=== PATIENT | female | born 1995 | race Caucasian/White ===

== ENCOUNTER 2023-09-18 12:48 | Inpatient (IN) ==
[2023-09-18] MEDS ORDERED: LIDOCAINE 1% LOCAL 20 ML VIAL INFIL PRN (22:43)
[2023-09-18] MEDS ORDERED: OXYTOCIN 30 UNITS/NSS 30 UNITS/500 ML BAG IV PRN (22:43)
--- NOTE | 2023-09-18 22:51 | History & Physical Report ---
Date of Service September 18, 2023 Assessment & Plan (1) Supervision of normal intrauterine in primigravida: Plan: 28-year-old G2, P0 currently at 40 weeks 3 days gestational age presents for induction of labor. 1. Fetus: Category 1 tracing 2. Labor: Oxytocin per regular protocol. Will AROM when appropriate 3. GBS negative 4. Vitals within normal limits Admission and Anticipated Discharge Date Admission Date: September 18, 2023 History of Present Illness Primary Care Provider: Estrella Mendez MD 28-year-old G2, P0 currently at 40 weeks 3 days gestational age presents for induction of labor. has been uncomplicated to date. OB Labs: Blood Type O Positive 02/06/23 Antibody Screen NEGATIVE 02/06/23 Hemoglobin 11.9 g/dl (12.0-16.0) L 06/28/23 Hematocrit 34.3 % (37.0-47.0) L 06/28/23 Mean Corpuscular Volume 83.3 fL (80.0-100.0) 02/06/23 Platelet Count 277 K/uL (130-400) 02/06/23 Rubella IgG Antibody Immune (Immune) 02/06/23 Rapid Plasma Reagin Nonreactive (Nonreactive) 02/06/23 Hepatitis B Surface Antigen. NON-REACTIVE (NON-REACTIVE) 02/06/23 Hepatitis C Antibody (EIA) NON-REACTIVE (NON-REACTIVE) 02/06/23 HIV (1&2) Ag and Ab Confirmation NON-REACTIVE (NON-REACTIVE) 02/06/23 Glucose 1 Hour 50 gm Load 118 mg/dl (70-130) 06/28/23 OB Optional Labs: Chlamydia trachomatis RNA Not Detected (NotDetected) 02/06/23 Neisseria gonorrhoeae RNA Not Detected (NotDetected) 02/06/23 Labs Reviewed: cf/sma-negative--mln cfdna-low risk--mln Allergies Allergy/AdvReac Type Severity Reaction Status Date / Time No Known Allergies Allergy Verified 09/17/23 19:51 Home Medications Medication Instructions Recorded Confirmed Type vitamin no.180-ferrous 1 tab PO DAILY 01/30/23 09/17/23 History fumarate 27 mg-folic acid 1 mg tablet ( Plus Vitamin-Mineral) aspirin 81 mg tablet,delayed 81 mg PO DAILY 04/03/23 09/17/23 History release (Adult Low Dose Aspirin) Patient History Medical History (Updated 09/18/23 @ 22:50 by Ashutosh Martinez MD) No pertinent past medical history Surgical History S/P appendectomy S/P wisdom tooth extraction Family History Sister Asthma Mother Hypertension Dyslipidemia Father Hypertension Dyslipidemia Other Breast cancer Osteoporosis Denies family history of Ovarian cancer Prostate cancer Colorectal cancer Social History Smoking Status: Never smoker Do You Dip or Chew Tobacco: No; Hx Alcohol Use: No Hx Substance Use: No Preferred Language: [place] Citizen Communication Ability: Effective 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 Beliefs That Will Affect Care: None marital status: marital status details: Mack (27) [phone] Current Living Situation: Spouse Current Living Situation Comment: lives with spouse, 1 dog current occupational status: employed current occupation: [employer] Feels Safe at Home: Yes Assistive Devices: None Physical Exam Genitourinary: normal external appearance Manual OB Exam: + cervical dilation (1.5), + cervical effacement 70% and + station -2 OB Exam Monitor Tracing: + external FHT monitor used, + external uterine monitor used, + category I and + normal FHT variability Coding Level of Care Code None Diagnoses Encounter for supervision of normal first in third trimester Z34.03 Trimester: third trimester (1) Supervision of normal intrauterine in primigravida Trimester: third trimester Qualified Code(s): Z34.03 - Encounter for supervision of normal first , third trimester
[2023-09-18 23:27] LABS: Hemoglobin 13.5 g/dl (12.0-16.0); Mean Corpuscular Hemoglobin 30.5 pg (25.0-34.0); Mean Corpuscular Hgb Conc 35.5 g/dL (32.0-36.0); Mean Platelet Volume 9.7 fL (9.4-12.4); Platelet Count 221 K/uL (130-400); RDW Coefficient of Variation 13.2 % (11.5-14.5); RDW Standard Deviation 41.1 fL (36.4-46.3); Red Blood Count 4.42 M/uL (4.20-5.40); White Blood Count 10.53 K/ul (4.8-10.8)
[2023-09-18] MEDS: LACTATED RINGER'S 1,000 ML IV PRN (23:51)
[2023-09-18] MEDS: OXYTOCIN 30 UNITS/NSS 30 UNITS/500 ML BAG IV PRN (23:52)
[2023-09-19] MEDS: ACETAMINOPHEN 325 MG TAB PO PRN (04:43)
--- NOTE | 2023-09-19 07:31 | Labor Progress Brief Note ---
Date of Service September 19, 2023 Subjective Reason For Note: Routine Evaluation Assessment & Plan (1) Supervision of normal intrauterine in primigravida: Plan: 28-year-old G2, P0 currently at 40 weeks 4 days gestational age presents for induction of labor. 1. Fetus: Category 1 tracing 2. Labor: Oxytocin per regular protocol. AROM 3. GBS negative 4. Vitals within normal limits Trimester: third trimester Qualified Code(s): Z34.03 - Encounter for supervision of normal first , third trimester Admission and Anticipated Discharge Date Admission Date: September 18, 2023 Physical Exam 2 Genitourinary: Manual OB Exam: + cervical dilation (2), + cervical effacement 70%, + station -2 and + amniotic fluid (AROM) OB Exam Monitor Tracing: + external FHT monitor used, + external uterine monitor used, + category I and + normal FHT variability Results & Data Vital Signs (Past 12 Hours) Vital Signs Temp Pulse Resp BP 09/19/23 07:03 89 136/83 09/19/23 06:03 97 H 111/66 09/19/23 05:03 90 125/70 09/19/23 04:03 91 H 130/69 09/19/23 03:04 78 122/74 09/19/23 02:32 18 09/19/23 02:32 18 09/19/23 02:04 75 121/66 09/19/23 01:17 80 123/69 09/19/23 01:15 18 09/19/23 01:15 36.8 C 18 09/19/23 00:03 89 127/72 09/18/23 23:03 37.0 C 09/18/23 22:50 86 134/87 Coding Level of Care Code None Diagnoses Encounter for supervision of normal first in third trimester Z34.03 Trimester: third trimester
--- NOTE | 2023-09-19 09:23 | Anesthesiology Consultation ---
Date of Service September 19, 2023 Assessment & Plan (1) Encounter for pre-operative examination: Chart Review Chart Review: Patient NOT seen in Pre Admission Testing and Acceptable Risk for Labor Epidural Consults Requested none History Height/Weight Height: 5 ft 3 in Weight: 86.183 kg Allergies Allergy/AdvReac Type Severity Reaction Status Date / Time No Known Allergies Allergy Verified 09/17/23 19:51 Medications Home Medications Medication Instructions Recorded Confirmed Last Taken vitamin no.180-ferrous 1 tab PO DAILY 01/30/23 09/18/23 09/18/23 fumarate 27 mg-folic acid 1 mg tablet ( Plus Vitamin-Mineral) aspirin 81 mg tablet,delayed 81 mg PO DAILY 04/03/23 09/18/23 09/18/23 release (Adult Low Dose Aspirin) Active Medications Generic Name Dose Route Start Last Admin Trade Name Freq PRN Reason Stop Dose Admin Acetaminophen 650 mg 09/18/23 22:43 09/19/23 04:43 Acetaminophen 325 Mg Tab PO 10/18/23 22:42 650 mg Q6H PRN Administration Pain Lactated Ringer's 1,000 mls @ 125 mls/hr 09/18/23 22:43 09/19/23 09:05 Lr IV 09/20/23 22:42 999 mls/hr .Q8H PRN Infusion L&D Protocol Protocol Oxytocin 30 units in 500 mls @ 20 mls/hr 09/18/23 22:46 09/19/23 07:00 Pitocin 30 Units/Nss IV 09/20/23 22:45 1.2 units/hr .Q24H PRN 20 mls/hr Labor Induction/Augmentation Titration Protocol 1.2 UNITS/HR Past Medical History Medical History No pertinent past medical history Past Family History Family History Sister Asthma Mother Hypertension Dyslipidemia Father Hypertension Dyslipidemia Other Breast cancer Osteoporosis Denies family history of Ovarian cancer Prostate cancer Colorectal cancer Past Surgical History Surgical History S/P appendectomy S/P wisdom tooth extraction Social History Smoking Status: Never smoker Do You Dip or Chew Tobacco: No Hx Alcohol Use: No Hx Substance Use: No substance use type: does not use Physical Exam Vital Signs Last Vital Signs Temp 98.4 F 09/19/23 07:28 Pulse 87 09/19/23 09:03 Resp 18 09/19/23 02:32 BP 128/75 09/19/23 09:03 Testing Laboratory Results 09/18/23 22:57
[2023-09-19] MEDS ORDERED: NALOXONE HCL 0.4 MG/1 ML VIAL/CARP IV PRN (09:24)
[2023-09-19] MEDS ORDERED: NALBUPHINE HCL 5 MG in SYRINGE 0 ML IV PRN (09:24)
[2023-09-19] MEDS ORDERED: SODIUM CHLORIDE 0.9% PF INJ 10 ML VIAL EPI PRN (09:24)
[2023-09-19] MEDS ORDERED: BUPIVACAINE 0.25% PF 30 ML VIAL EPI PRN (09:24)
[2023-09-19] MEDS ORDERED: LIDOCAINE 2% MPF LOCAL 5 ML VIAL EPI PRN (09:24)
[2023-09-19] MEDS ORDERED: NALOXONE HCL 1 MG in SODIUM CHLORIDE 0.9% 1,000 ML IV PRN (09:24)
[2023-09-19] MEDS ORDERED: ePHEDrine sulfate 50 MG/ML AMP IV PRN (09:24)
[2023-09-19] MEDS ORDERED: fentaNYL citrate PF 100 MCG/2 ML VIAL EPI PRN (09:24)
[2023-09-19] MEDS ORDERED: ROPIVACAINE 0.5% PF 5 MG/ML 20 ML VIAL EPI PRN (09:24)
[2023-09-19] MEDS: BUPIVACAINE 0.25% PF 30 ML VIAL EPI STA (09:49)
[2023-09-19] MEDS: fentANYL 2 MCG/ML BUPIVacaine 0.125%-NSS 100ML BAG EPI PRN (09:49)
[2023-09-19] MEDS: LIDOCAINE 2%/EPINEPHRINE 1:200,000 20 ML PF EPI STA (09:49)
--- NOTE | 2023-09-19 12:56 | Labor Progress Brief Note ---
Date of Service September 19, 2023 Subjective comfortable Assessment & Plan (1) Supervision of normal intrauterine in primigravida: Trimester: third trimester Qualified Code(s): Z34.03 - Encounter for supervision of normal first , third trimester Plan iol for postdates, rom at 7:[address] Martinez, did not get much fluid. I was able to place iupc easily and did not appreciate any membranes. fetus category one. continue current management plan. Admission and Anticipated Discharge Date Admission Date: September 18, 2023 Physical Exam Physical Exam: cx--1+/50/-2 I cannot appreciate any membranes iupc placed pit at 20 toco--q2-4min efm--140s with mod variability, accels present, no decels Results & Data Vital Signs (Past 12 Hours) Vital Signs Temp Pulse Resp BP Pulse Ox 09/19/23 12:48 80 97 09/19/23 12:43 75 97 09/19/23 12:38 74 99 09/19/23 12:33 78 95 09/19/23 12:32 71 118/64 09/19/23 12:28 82 96 09/19/23 12:23 80 95 09/19/23 12:18 75 96 09/19/23 12:16 77 119/65 09/19/23 12:13 79 95 09/19/23 12:08 76 96 09/19/23 12:03 73 96 09/19/23 12:02 70 101/54 L 09/19/23 11:58 74 97 09/19/23 11:53 70 94 09/19/23 11:48 73 96 09/19/23 11:46 70 98/53 L 09/19/23 11:43 70 95 09/19/23 11:38 73 96 09/19/23 11:33 75 96 09/19/23 11:31 68 96/51 L 09/19/23 11:30 20 09/19/23 11:30 20 09/19/23 11:28 69 94 09/19/23 11:23 70 96 09/19/23 11:18 95 09/19/23 11:18 70 09/19/23 11:18 75 98/54 L 09/19/23 11:13 70 95 09/19/23 11:08 75 97 09/19/23 11:03 78 95 09/19/23 11:02 83 116/57 L 09/19/23 11:00 20 09/19/23 11:00 20 09/19/23 10:58 73 93 09/19/23 10:53 75 94 09/19/23 10:48 76 95 09/19/23 10:47 80 116/62 09/19/23 10:43 77 96 09/19/23 10:38 74 96 09/19/23 10:33 76 95 09/19/23 10:32 85 123/59 L 09/19/23 10:30 20 09/19/23 10:30 20 09/19/23 10:28 75 94 09/19/23 10:23 82 95 09/19/23 10:18 78 95 09/19/23 10:15 86 20 134/65 09/19/23 10:13 87 96 09/19/23 10:10 85 123/63 09/19/23 10:08 81 96 09/19/23 10:05 88 121/68 09/19/23 10:03 92 H 96 09/19/23 10:02 85 121/61 09/19/23 10:00 84 18 94 09/19/23 09:58 82 95 09/19/23 09:55 88 20 135/71 09/19/23 09:53 97 H 130/60 96 09/19/23 09:51 88 122/61 09/19/23 09:50 20 09/19/23 09:50 20 09/19/23 09:49 82 128/64 09/19/23 09:48 86 97 09/19/23 09:47 86 119/58 L 09/19/23 09:45 83 20 125/58 L 09/19/23 09:43 97 09/19/23 09:43 87 09/19/23 09:43 86 128/61 09/19/23 09:41 85 136/68 09/19/23 09:40 95 H 88 L 09/19/23 09:38 86 98 09/19/23 09:30 96 H 98 09/19/23 09:28 36.7 C 09/19/23 09:03 87 128/75 09/19/23 08:03 88 132/69 09/19/23 07:28 36.9 C 09/19/23 07:03 89 136/83 09/19/23 06:03 97 H 111/66 09/19/23 05:03 90 125/70 09/19/23 04:03 91 H 130/69 09/19/23 03:04 78 122/74 09/19/23 02:32 18 09/19/23 02:32 18 09/19/23 02:04 75 121/66 09/19/23 01:17 80 123/69 09/19/23 01:15 18 09/19/23 01:15 36.8 C 18 Coding Level of Care Code None Diagnoses Encounter for supervision of normal first in third trimester Z34.03 Trimester: third trimester
--- NOTE | 2023-09-19 14:10 | Communication Note ---
Date of Service: September 19, 2023 After placing iupc, no fluid noted from vagina or in catheter. The iupc was essentially not really picking up much uterine activity. I believe it is bet ween the membranes and uterine wall. I believe membranes are still intact. Bedside us shows several pockets of fluid, including one at the level of the neck/head. Attempted again to rom without much success. I believe I can palpate membranes. Difficult cervical exam with ant cervix with a curve anteriorly. Discussed now that comfortable, try to place a yoo again as I thought she was a loose 1/50%. Bed broken down, put in stirrups and bottom off the bottom of the bed. Attempted to placed yoo bulb x 2 failed with bulb just coming out. I then rechecked her cervix in this new postioning and can get two fingers in so tight /. Again attempted to arom without success. I can definitely palpate membranes at this point. Decision made to just continue pit at 20 for a bit longer and see if more able to arom when she is 4-5cm. Fetus tolerated all of this very well and continues to be category one. Patient also tolerated too.
[2023-09-19] MEDS: diphenhydrAMINE 50 MG/ML VIAL IV PRN (18:16)
[2023-09-19] MEDS: CALCIUM CARBONATE 500 MG CHEWABLE TAB PO PRN (18:16)
[2023-09-19] MEDS: BUPIVACAINE 0.25% PF 30 ML VIAL ONE (18:45)
[2023-09-19] MEDS: ePHEDrine sulfate 50 MG/ML AMP ONE (18:45)
[2023-09-19] MEDS: fentaNYL citrate PF 100 MCG/2 ML VIAL ONE (18:45)
[2023-09-19] MEDS: fentANYL 2 MCG/ML BUPIVacaine 0.125%-NSS 100ML BAG ONE (18:46)
[2023-09-19] MEDS: SODIUM CHLORIDE 0.9% PF INJ 10 ML VIAL ONE (18:46)
[2023-09-19] MEDS: SODIUM CHLORIDE 0.9% PF INJ 10 ML VIAL EPI STA (18:46)
[2023-09-19] MEDS: fentaNYL citrate PF 100 MCG/2 ML VIAL EPI STA (18:46)
[2023-09-19] MEDS: LIDOCAINE 2%/EPINEPHRINE 1:200,000 20 ML PF ONE (18:46)
--- NOTE | 2023-09-19 19:50 | Labor Progress Brief Note ---
Date of Service September 19, 2023 Subjective late entry because of other patient care issues. Comfortable Assessment & Plan (1) Encounter for induction of labor: Plan I am perplexed that I am unable to rom . There are times when I don't think I feel membranes, but mostly I do. Really have not gotten any fluid back and ultrasound shows fluid pockets in the uterus. The cervical exam is very strange--anterior , curved and I am unable to get my finger between the cervix around the head posteriorly. REviewed her ultrasound and the placenta is noted as posterior and no mention of low lying. It is like the post cervix feels adhesed to the cephalic. Cephalic confirmed by ultrasound. Do not think this is some type of face or mentum presentation. At this point, since we have a category one fetus. Will just plan to go up on the pitocin. The contractions palpate mild to nursing. Will recheck in 6 hours or so unless something radically changes. Explained this to patient, father and her mother to the best of my ability, admitting that this is a bit of a strange course, but see no reason to proceed with operative delivery at this time. Admission and Anticipated Discharge Date Admission Date: September 18, 2023 Physical Exam Physical Exam: cx--unchanged toco--palpates mild, pit at 20, q2-4min efm--140s with mod variability, accels to 150s, no decels Again tried multiple ways to arom with both a cot and hook. Just made her bleed and no fluid noted. Results & Data Vital Signs (Past 12 Hours) Vital Signs Temp Pulse Resp BP Pulse Ox 09/19/23 19:38 93 09/19/23 19:38 82 09/19/23 19:33 89 96 09/19/23 19:31 79 115/64 09/19/23 19:28 79 95 09/19/23 19:23 81 93 09/19/23 19:18 90 96 09/19/23 19:16 88 123/66 09/19/23 19:13 91 H 96 09/19/23 19:08 81 96 09/19/23 19:05 36.7 C 18 09/19/23 19:03 82 96 09/19/23 19:01 96 H 117/67 09/19/23 18:58 89 94 09/19/23 18:53 84 94 09/19/23 18:48 87 95 09/19/23 18:46 83 115/62 09/19/23 18:43 90 96 09/19/23 18:38 82 95 09/19/23 18:33 85 96 09/19/23 18:32 98 H 129/79 09/19/23 18:30 18 09/19/23 18:30 18 09/19/23 18:28 95 H 96 09/19/23 18:23 95 H 96 09/19/23 18:18 85 95 09/19/23 18:17 83 124/56 L 09/19/23 18:16 83 89 L 09/19/23 18:13 95 H 95 09/19/23 18:08 95 H 95 09/19/23 18:03 95 09/19/23 18:03 84 09/19/23 18:03 84 117/65 09/19/23 18:00 20 09/19/23 18:00 20 09/19/23 17:58 91 H 94 09/19/23 17:53 83 95 09/19/23 17:48 88 96 09/19/23 17:46 89 120/72 09/19/23 17:43 84 96 09/19/23 17:38 92 H 96 09/19/23 17:33 82 95 09/19/23 17:32 85 129/82 09/19/23 17:30 18 09/19/23 17:30 18 09/19/23 17:28 82 94 09/19/23 17:23 92 H 97 09/19/23 17:18 76 96 09/19/23 17:16 127/69 09/19/23 17:13 81 98 09/19/23 17:08 68 98 09/19/23 17:03 79 95 09/19/23 17:02 92 H 128/62 09/19/23 17:00 20 09/19/23 17:00 36.9 C 20 09/19/23 16:58 94 H 96 09/19/23 16:53 77 95 09/19/23 16:48 96 09/19/23 16:48 90 09/19/23 16:48 75 123/65 09/19/23 16:43 77 95 09/19/23 16:38 87 95 09/19/23 16:33 85 96 09/19/23 16:32 83 119/75 09/19/23 16:30 18 09/19/23 16:30 37.1 C 18 09/19/23 16:28 72 96 09/19/23 16:23 71 95 09/19/23 16:18 72 97 09/19/23 16:17 76 117/58 L 09/19/23 16:13 69 95 09/19/23 16:08 69 94 09/19/23 16:03 69 95 09/19/23 16:01 64 100/51 L 09/19/23 15:58 70 16 95 09/19/23 15:53 72 95 09/19/23 15:48 71 96 09/19/23 15:46 69 100/52 L 09/19/23 15:43 71 95 09/19/23 15:38 69 95 09/19/23 15:33 69 95 09/19/23 15:28 76 96 09/19/23 15:23 69 96 09/19/23 15:18 71 95 09/19/23 15:16 74 102/56 L 09/19/23 15:13 74 95 09/19/23 15:08 78 96 09/19/23 15:03 76 96 09/19/23 15:01 82 116/58 L 09/19/23 15:00 18 09/19/23 15:00 18 09/19/23 14:58 84 95 09/19/23 14:53 83 95 09/19/23 14:48 80 94 09/19/23 14:46 79 116/56 L 09/19/23 14:43 79 94 09/19/23 14:38 83 94 09/19/23 14:33 83 94 09/19/23 14:31 79 114/56 L 09/19/23 14:28 74 94 09/19/23 14:23 79 94 09/19/23 14:18 78 95 09/19/23 14:16 73 120/70 09/19/23 14:13 79 96 09/19/23 14:08 77 94 09/19/23 14:03 76 96 09/19/23 14:02 78 123/69 09/19/23 14:00 18 09/19/23 14:00 18 09/19/23 13:58 78 97 09/19/23 13:53 81 96 09/19/23 13:48 85 94 09/19/23 13:47 79 119/70 09/19/23 13:43 72 96 09/19/23 13:38 72 96 09/19/23 13:33 94 H 96 09/19/23 13:31 88 118/71 09/19/23 13:30 20 09/19/23 13:30 20 09/19/23 13:28 95 H 96 09/19/23 13:23 90 95 09/19/23 13:18 75 95 09/19/23 13:16 82 124/72 09/19/23 13:13 89 96 09/19/23 13:08 89 95 09/19/23 13:03 81 94 09/19/23 13:02 82 119/71 09/19/23 12:59 18 09/19/23 12:59 37.1 C 18 09/19/23 12:58 82 96 09/19/23 12:53 82 97 09/19/23 12:48 80 97 09/19/23 12:43 75 97 09/19/23 12:38 74 99 09/19/23 12:33 78 95 09/19/23 12:32 71 118/64 09/19/23 12:28 82 96 09/19/23 12:23 80 95 09/19/23 12:18 75 96 09/19/23 12:16 77 119/65 09/19/23 12:13 79 95 09/19/23 12:08 76 96 09/19/23 12:03 73 96 09/19/23 12:02 70 101/54 L 09/19/23 11:58 74 97 09/19/23 11:53 70 94 09/19/23 11:48 73 96 09/19/23 11:46 70 98/53 L 09/19/23 11:43 70 95 09/19/23 11:38 73 96 09/19/23 11:33 75 96 09/19/23 11:31 68 96/51 L 09/19/23 11:30 20 09/19/23 11:30 20 09/19/23 11:28 69 94 09/19/23 11:23 70 96 09/19/23 11:18 95 09/19/23 11:18 70 09/19/23 11:18 75 98/54 L 09/19/23 11:13 70 95 09/19/23 11:08 75 97 09/19/23 11:03 78 95 09/19/23 11:02 83 116/57 L 09/19/23 11:00 20 09/19/23 11:00 20 09/19/23 10:58 73 93 09/19/23 10:53 75 94 09/19/23 10:48 76 95 09/19/23 10:47 80 116/62 09/19/23 10:43 77 96 09/19/23 10:38 74 96 09/19/23 10:33 76 95 09/19/23 10:32 85 123/59 L 09/19/23 10:30 20 09/19/23 10:30 20 09/19/23 10:28 75 94 09/19/23 10:23 82 95 09/19/23 10:18 78 95 09/19/23 10:15 86 20 134/65 09/19/23 10:13 87 96 09/19/23 10:10 85 123/63 09/19/23 10:08 81 96 09/19/23 10:05 88 121/68 09/19/23 10:03 92 H 96 09/19/23 10:02 85 121/61 09/19/23 10:00 84 18 94 09/19/23 09:58 82 95 09/19/23 09:55 88 20 135/71 09/19/23 09:53 97 H 130/60 96 09/19/23 09:51 88 122/61 09/19/23 09:50 20 09/19/23 09:50 20 09/19/23 09:49 82 128/64 09/19/23 09:48 86 97 09/19/23 09:47 86 119/58 L 09/19/23 09:45 83 20 125/58 L 09/19/23 09:43 97 09/19/23 09:43 87 09/19/23 09:43 86 128/61 09/19/23 09:41 85 136/68 09/19/23 09:40 95 H 88 L 09/19/23 09:38 86 98 09/19/23 09:30 96 H 98 09/19/23 09:28 36.7 C 09/19/23 09:03 87 128/75 09/19/23 08:03 88 132/69 Coding Level of Care Code None Diagnoses Encounter for induction of labor Z34.90
--- NOTE | 2023-09-20 00:06 | Labor Progress Brief Note ---
Date of Service September 20, 2023 Subjective comfortable, sleeping Assessment & Plan (1) Encounter for induction of labor: Plan pit at 30, ctx palpate more moderate at this point. will half pit and go up again. recheck in 6 hours . Fetus category one. Admission and Anticipated Discharge Date Admission Date: September 18, 2023 Physical Exam Physical Exam: cx--unchanged /75/-2 toco--q2-3, pit at 30 efm--130s wtih mod variabiltiy, accels to 150s, no decels, +scalp stim Results & Data Vital Signs (Past 12 Hours) Vital Signs Temp Pulse Resp BP Pulse Ox 09/20/23 00:03 83 151/77 H 98 09/19/23 23:59 90 09/19/23 23:59 78 09/19/23 23:58 93 09/19/23 23:58 68 09/19/23 23:53 94 09/19/23 23:53 72 09/19/23 23:48 94 09/19/23 23:48 73 09/19/23 23:46 66 09/19/23 23:46 119/65 09/19/23 23:44 92 09/19/23 23:44 73 09/19/23 23:43 93 09/19/23 23:43 73 09/19/23 23:38 94 09/19/23 23:38 70 09/19/23 23:36 92 09/19/23 23:36 75 09/19/23 23:33 94 09/19/23 23:33 76 09/19/23 23:31 69 09/19/23 23:31 119/60 09/19/23 23:28 95 09/19/23 23:28 78 09/19/23 23:23 94 09/19/23 23:23 80 09/19/23 23:18 95 09/19/23 23:18 72 09/19/23 23:16 67 09/19/23 23:16 116/64 09/19/23 23:13 93 09/19/23 23:13 72 09/19/23 23:08 93 09/19/23 23:08 74 09/19/23 23:03 93 09/19/23 23:03 72 09/19/23 23:01 72 09/19/23 23:01 114/60 09/19/23 22:58 94 09/19/23 22:58 73 09/19/23 22:53 95 09/19/23 22:53 74 09/19/23 22:48 95 09/19/23 22:48 76 09/19/23 22:46 73 09/19/23 22:46 109/61 09/19/23 22:43 94 09/19/23 22:43 73 09/19/23 22:38 93 09/19/23 22:38 69 09/19/23 22:33 94 09/19/23 22:33 71 09/19/23 22:31 74 09/19/23 22:31 107/59 L 09/19/23 22:28 95 09/19/23 22:28 70 09/19/23 22:23 95 09/19/23 22:23 77 09/19/23 22:18 96 09/19/23 22:18 64 09/19/23 22:17 62 09/19/23 22:17 107/57 L 09/19/23 22:14 91 09/19/23 22:14 71 09/19/23 22:13 93 09/19/23 22:13 72 09/19/23 22:08 94 09/19/23 22:08 67 09/19/23 22:03 94 09/19/23 22:03 68 09/19/23 22:01 65 09/19/23 22:01 100/52 L 09/19/23 21:58 94 09/19/23 21:58 67 09/19/23 21:53 93 09/19/23 21:53 73 09/19/23 21:52 92 09/19/23 21:52 73 09/19/23 21:48 94 09/19/23 21:48 74 09/19/23 21:47 65 09/19/23 21:47 100/56 L 09/19/23 21:46 69 09/19/23 21:46 104/54 L 09/19/23 21:43 94 09/19/23 21:43 70 09/19/23 21:38 94 09/19/23 21:38 66 09/19/23 21:33 94 09/19/23 21:33 67 09/19/23 21:31 66 09/19/23 21:31 102/53 L 09/19/23 21:28 94 09/19/23 21:28 68 09/19/23 21:23 95 09/19/23 21:23 65 09/19/23 21:18 94 09/19/23 21:18 70 09/19/23 21:16 65 09/19/23 21:16 99/51 L 09/19/23 21:13 94 09/19/23 21:13 65 09/19/23 21:09 18 09/19/23 21:09 36.8 C 18 09/19/23 21:09 91 09/19/23 21:09 84 09/19/23 21:08 93 09/19/23 21:08 82 09/19/23 21:03 94 09/19/23 21:03 88 09/19/23 21:02 80 09/19/23 21:02 114/65 09/19/23 20:58 93 09/19/23 20:58 73 09/19/23 20:53 96 09/19/23 20:53 81 09/19/23 20:48 96 09/19/23 20:48 81 09/19/23 20:46 85 09/19/23 20:46 126/72 09/19/23 20:43 96 09/19/23 20:43 91 H 09/19/23 20:38 95 09/19/23 20:38 72 09/19/23 20:33 95 09/19/23 20:33 76 09/19/23 20:31 85 09/19/23 20:31 120/74 09/19/23 20:28 97 09/19/23 20:28 92 H 09/19/23 20:23 96 09/19/23 20:23 75 09/19/23 20:18 100 09/19/23 20:18 97 H 09/19/23 20:16 88 09/19/23 20:16 110/68 09/19/23 20:13 95 09/19/23 20:13 81 09/19/23 20:08 94 09/19/23 20:08 79 09/19/23 20:03 96 09/19/23 20:03 80 09/19/23 20:02 75 09/19/23 20:02 116/63 09/19/23 19:58 93 09/19/23 19:58 79 09/19/23 19:53 94 09/19/23 19:53 73 09/19/23 19:48 93 09/19/23 19:48 74 09/19/23 19:47 78 09/19/23 19:47 120/72 09/19/23 19:43 95 09/19/23 19:43 82 09/19/23 19:38 93 09/19/23 19:38 82 09/19/23 19:33 89 96 09/19/23 19:31 79 115/64 09/19/23 19:28 79 95 09/19/23 19:23 81 93 09/19/23 19:18 90 96 09/19/23 19:16 88 123/66 09/19/23 19:13 91 H 96 09/19/23 19:08 81 96 09/19/23 19:05 36.7 C 18 09/19/23 19:03 82 96 09/19/23 19:01 96 H 117/67 09/19/23 18:58 89 94 09/19/23 18:53 84 94 09/19/23 18:48 87 95 09/19/23 18:46 83 115/62 09/19/23 18:43 90 96 09/19/23 18:38 82 95 09/19/23 18:33 85 96 09/19/23 18:32 98 H 129/79 09/19/23 18:30 18 09/19/23 18:30 18 09/19/23 18:28 95 H 96 09/19/23 18:23 95 H 96 09/19/23 18:18 85 95 09/19/23 18:17 83 124/56 L 09/19/23 18:16 83 89 L 09/19/23 18:13 95 H 95 09/19/23 18:08 95 H 95 09/19/23 18:03 95 09/19/23 18:03 84 09/19/23 18:03 84 117/65 09/19/23 18:00 20 09/19/23 18:00 20 09/19/23 17:58 91 H 94 09/19/23 17:53 83 95 09/19/23 17:48 88 96 09/19/23 17:46 89 120/72 09/19/23 17:43 84 96 09/19/23 17:38 92 H 96 09/19/23 17:33 82 95 09/19/23 17:32 85 129/82 09/19/23 17:30 18 09/19/23 17:30 18 09/19/23 17:28 82 94 09/19/23 17:23 92 H 97 09/19/23 17:18 76 96 09/19/23 17:16 127/69 09/19/23 17:13 81 98 09/19/23 17:08 68 98 09/19/23 17:03 79 95 09/19/23 17:02 92 H 128/62 09/19/23 17:00 20 09/19/23 17:00 36.9 C 20 09/19/23 16:58 94 H 96 09/19/23 16:53 77 95 09/19/23 16:48 96 09/19/23 16:48 90 09/19/23 16:48 75 123/65 09/19/23 16:43 77 95 09/19/23 16:38 87 95 09/19/23 16:33 85 96 09/19/23 16:32 83 119/75 09/19/23 16:30 18 09/19/23 16:30 37.1 C 18 09/19/23 16:28 72 96 09/19/23 16:23 71 95 09/19/23 16:18 72 97 09/19/23 16:17 76 117/58 L 09/19/23 16:13 69 95 09/19/23 16:08 69 94 09/19/23 16:03 69 95 09/19/23 16:01 64 100/51 L 09/19/23 15:58 70 16 95 09/19/23 15:53 72 95 09/19/23 15:48 71 96 09/19/23 15:46 69 100/52 L 09/19/23 15:43 71 95 09/19/23 15:38 69 95 09/19/23 15:33 69 95 09/19/23 15:28 76 96 09/19/23 15:23 69 96 09/19/23 15:18 71 95 09/19/23 15:16 74 102/56 L 09/19/23 15:13 74 95 09/19/23 15:08 78 96 09/19/23 15:03 76 96 09/19/23 15:01 82 116/58 L 09/19/23 15:00 18 09/19/23 15:00 18 09/19/23 14:58 84 95 09/19/23 14:53 83 95 09/19/23 14:48 80 94 09/19/23 14:46 79 116/56 L 09/19/23 14:43 79 94 09/19/23 14:38 83 94 09/19/23 14:33 83 94 09/19/23 14:31 79 114/56 L 09/19/23 14:28 74 94 09/19/23 14:23 79 94 09/19/23 14:18 78 95 09/19/23 14:16 73 120/70 09/19/23 14:13 79 96 09/19/23 14:08 77 94 09/19/23 14:03 76 96 09/19/23 14:02 78 123/69 09/19/23 14:00 18 09/19/23 14:00 18 09/19/23 13:58 78 97 09/19/23 13:53 81 96 09/19/23 13:48 85 94 09/19/23 13:47 79 119/70 09/19/23 13:43 72 96 09/19/23 13:38 72 96 09/19/23 13:33 94 H 96 09/19/23 13:31 88 118/71 09/19/23 13:30 20 09/19/23 13:30 20 09/19/23 13:28 95 H 96 09/19/23 13:23 90 95 09/19/23 13:18 75 95 09/19/23 13:16 82 124/72 09/19/23 13:13 89 96 09/19/23 13:08 89 95 09/19/23 13:03 81 94 09/19/23 13:02 82 119/71 09/19/23 12:59 18 09/19/23 12:59 37.1 C 18 09/19/23 12:58 82 96 09/19/23 12:53 82 97 09/19/23 12:48 80 97 09/19/23 12:43 75 97 09/19/23 12:38 74 99 09/19/23 12:33 78 95 09/19/23 12:32 71 118/64 09/19/23 12:28 82 96 09/19/23 12:23 80 95 09/19/23 12:18 75 96 09/19/23 12:16 77 119/65 09/19/23 12:13 79 95 09/19/23 12:08 76 96 Coding Level of Care Code None Diagnoses Encounter for induction of labor Z34.90
--- NOTE | 2023-09-20 06:32 | Labor Progress Brief Note ---
Date of Service September 20, 2023 Subjective comfortable, was able to rest overnight. Assessment & Plan (1) Encounter for induction of labor: Plan I think there is some change in the cervical exam. More ant and softer. The exam feels a little more normal, but still unusual. fetus category one. Continue current management. Probably can go up on the pitocin as the contractions are palpating moderate, however, have been unable to pass iupc for further information. Will discuss with Dr. Reyes when she assumes care about plan going furgher. Admission and Anticipated Discharge Date Admission Date: September 18, 2023 Physical Exam Physical Exam: cx--4/75/-2/softer/more ant toco--q2-3min, pit at 30 for last hour, contractions palpating moderate efm--140s with mod variabilty, accels present, no decels Results & Data Vital Signs (Past 12 Hours) Vital Signs Temp Pulse Resp BP Pulse Ox 09/20/23 06:28 36.8 C 09/20/23 06:23 71 97 09/20/23 06:18 65 96 09/20/23 06:16 60 105/58 L 09/20/23 06:13 64 95 09/20/23 06:08 69 93 09/20/23 06:03 65 94 09/20/23 06:01 56 L 104/57 L 09/20/23 05:58 66 95 09/20/23 05:53 57 L 95 09/20/23 05:48 62 94 09/20/23 05:46 59 L 99/57 L 09/20/23 05:43 62 94 09/20/23 05:38 62 95 09/20/23 05:33 61 95 09/20/23 05:31 69 103/57 L 09/20/23 05:28 63 95 09/20/23 05:23 64 94 09/20/23 05:18 63 94 09/20/23 05:16 63 103/57 L 09/20/23 05:13 63 94 09/20/23 05:08 64 95 09/20/23 05:03 67 94 09/20/23 05:01 61 103/55 L 09/20/23 04:58 66 93 09/20/23 04:53 69 93 09/20/23 04:52 64 92 09/20/23 04:48 75 94 09/20/23 04:47 66 89 L 09/20/23 04:46 66 99/55 L 09/20/23 04:43 66 94 09/20/23 04:38 66 94 09/20/23 04:36 67 91 09/20/23 04:33 65 94 09/20/23 04:31 62 99/52 L 09/20/23 04:28 70 94 09/20/23 04:23 65 94 09/20/23 04:18 66 94 09/20/23 04:16 61 100/51 L 09/20/23 04:13 66 94 09/20/23 04:08 63 95 09/20/23 04:03 62 95 09/20/23 04:01 62 101/53 L 09/20/23 04:00 37.0 C 09/20/23 03:58 64 95 09/20/23 03:53 69 96 09/20/23 03:48 67 95 09/20/23 03:43 67 96 09/20/23 03:38 67 96 09/20/23 03:33 72 96 09/20/23 03:28 71 95 09/20/23 03:23 85 95 09/20/23 03:18 73 94 09/20/23 03:16 68 113/62 09/20/23 03:13 76 95 09/20/23 03:08 72 95 09/20/23 03:03 71 95 09/20/23 03:01 67 111/61 09/20/23 02:58 69 95 09/20/23 02:53 71 95 09/20/23 02:48 71 94 09/20/23 02:46 69 112/58 L 09/20/23 02:43 72 95 09/20/23 02:38 76 94 09/20/23 02:33 75 95 09/20/23 02:31 68 110/62 09/20/23 02:28 72 96 09/20/23 02:23 83 97 09/20/23 02:18 71 95 09/20/23 02:16 68 119/64 09/20/23 02:13 78 96 09/20/23 02:08 72 94 09/20/23 02:03 78 95 09/20/23 02:01 74 117/65 09/20/23 01:58 72 96 09/20/23 01:53 82 95 09/20/23 01:48 85 98 09/20/23 01:47 77 116/59 L 09/20/23 01:43 77 96 09/20/23 01:38 83 95 09/20/23 01:33 83 95 09/20/23 01:31 75 114/65 09/20/23 01:28 80 94 09/20/23 01:23 73 95 09/20/23 01:18 72 94 09/20/23 01:17 74 111/58 L 09/20/23 01:13 79 94 09/20/23 01:08 72 95 09/20/23 01:03 74 96 09/20/23 01:01 70 115/62 09/20/23 00:58 78 95 09/20/23 00:53 80 94 09/20/23 00:48 67 94 09/20/23 00:47 76 117/67 09/20/23 00:43 73 95 09/20/23 00:38 78 95 09/20/23 00:33 75 95 09/20/23 00:32 70 119/65 09/20/23 00:28 80 96 09/20/23 00:23 83 96 09/20/23 00:18 89 96 09/20/23 00:13 80 97 09/20/23 00:08 79 96 09/20/23 00:03 83 151/77 H 98 09/20/23 00:00 36.8 C 09/19/23 23:59 90 09/19/23 23:59 78 09/19/23 23:58 93 09/19/23 23:58 68 09/19/23 23:53 94 09/19/23 23:53 72 09/19/23 23:48 94 09/19/23 23:48 73 09/19/23 23:46 66 09/19/23 23:46 119/65 09/19/23 23:44 92 09/19/23 23:44 73 09/19/23 23:43 93 09/19/23 23:43 73 09/19/23 23:38 94 09/19/23 23:38 70 09/19/23 23:36 92 09/19/23 23:36 75 09/19/23 23:33 94 09/19/23 23:33 76 08/14/24 23:31 69 09/19/23 23:31 119/60 09/19/23 23:28 95 09/19/23 23:28 78 09/19/23 23:23 94 09/19/23 23:23 80 09/19/23 23:18 95 09/19/23 23:18 72 09/19/23 23:16 67 09/19/23 23:16 116/64 09/19/23 23:13 93 09/19/23 23:13 72 09/19/23 23:08 93 09/19/23 23:08 74 09/19/23 23:03 93 09/19/23 23:03 72 09/19/23 23:01 72 09/19/23 23:01 114/60 09/19/23 22:58 94 09/19/23 22:58 73 09/19/23 22:53 95 09/19/23 22:53 74 09/19/23 22:48 95 09/19/23 22:48 76 09/19/23 22:46 73 09/19/23 22:46 109/61 09/19/23 22:43 94 09/19/23 22:43 73 09/19/23 22:38 93 09/19/23 22:38 69 09/19/23 22:33 94 09/19/23 22:33 71 09/19/23 22:31 74 09/19/23 22:31 107/59 L 09/19/23 22:28 95 09/19/23 22:28 70 09/19/23 22:23 95 09/19/23 22:23 77 09/19/23 22:18 96 09/19/23 22:18 64 09/19/23 22:17 62 09/19/23 22:17 107/57 L 09/19/23 22:14 91 09/19/23 22:14 71 09/19/23 22:13 93 09/19/23 22:13 72 09/19/23 22:08 94 09/19/23 22:08 67 09/19/23 22:03 94 09/19/23 22:03 68 09/19/23 22:01 65 09/19/23 22:01 100/52 L 09/19/23 21:58 94 09/19/23 21:58 67 09/19/23 21:53 93 09/19/23 21:53 73 09/19/23 21:52 92 09/19/23 21:52 73 09/19/23 21:48 94 09/19/23 21:48 74 09/19/23 21:47 65 09/19/23 21:47 100/56 L 09/19/23 21:46 69 09/19/23 21:46 104/54 L 09/19/23 21:43 94 09/19/23 21:43 70 09/19/23 21:38 94 09/19/23 21:38 66 09/19/23 21:33 94 09/19/23 21:33 67 09/19/23 21:31 66 09/19/23 21:31 102/53 L 09/19/23 21:28 94 09/19/23 21:28 68 09/19/23 21:23 95 09/19/23 21:23 65 09/19/23 21:18 94 09/19/23 21:18 70 09/19/23 21:16 65 09/19/23 21:16 99/51 L 09/19/23 21:13 94 09/19/23 21:13 65 09/19/23 21:09 18 09/19/23 21:09 36.8 C 18 09/19/23 21:09 91 09/19/23 21:09 84 09/19/23 21:08 93 09/19/23 21:08 82 09/19/23 21:03 94 09/19/23 21:03 88 09/19/23 21:02 80 09/19/23 21:02 114/65 09/19/23 20:58 93 09/19/23 20:58 73 09/19/23 20:53 96 09/19/23 20:53 81 09/19/23 20:48 96 09/19/23 20:48 81 09/19/23 20:46 85 09/19/23 20:46 126/72 09/19/23 20:43 96 09/19/23 20:43 91 H 09/19/23 20:38 95 09/19/23 20:38 72 09/19/23 20:33 95 09/19/23 20:33 76 09/19/23 20:31 85 09/19/23 20:31 120/74 09/19/23 20:28 97 09/19/23 20:28 92 H 09/19/23 20:23 96 09/19/23 20:23 75 09/19/23 20:18 100 09/19/23 20:18 97 H 09/19/23 20:16 88 09/19/23 20:16 110/68 09/19/23 20:13 95 09/19/23 20:13 81 09/19/23 20:08 94 09/19/23 20:08 79 09/19/23 20:03 96 09/19/23 20:03 80 09/19/23 20:02 75 09/19/23 20:02 116/63 09/19/23 19:58 93 09/19/23 19:58 79 09/19/23 19:53 94 09/19/23 19:53 73 09/19/23 19:48 93 09/19/23 19:48 74 09/19/23 19:47 78 09/19/23 19:47 120/72 09/19/23 19:43 95 09/19/23 19:43 82 09/19/23 19:38 93 09/19/23 19:38 82 09/19/23 19:33 89 96 09/19/23 19:31 79 115/64 09/19/23 19:28 79 95 09/19/23 19:23 81 93 09/19/23 19:18 90 96 09/19/23 19:16 88 123/66 09/19/23 19:13 91 H 96 09/19/23 19:08 81 96 09/19/23 19:05 36.7 C 18 09/19/23 19:03 82 96 09/19/23 19:01 96 H 117/67 09/19/23 18:58 89 94 09/19/23 18:53 84 94 09/19/23 18:48 87 95 09/19/23 18:46 83 115/62 09/19/23 18:43 90 96 09/19/23 18:38 82 95 09/19/23 18:33 85 96 09/19/23 18:32 98 H 129/79 09/19/23 18:30 18 08/14/24 18:30 18 Coding Level of Care Code None Diagnoses Encounter for induction of labor Z34.90
[2023-09-20] MEDS ORDERED: ONDANSETRON INJ 2 MG/ML 2 ML VIAL IV PRN ×2 (08:23→15:25)
[2023-09-20] MEDS: ONDANSETRON INJ 2 MG/ML 2 ML VIAL ONE (08:29)
[2023-09-20] MEDS: fentANYL 2 MCG/ML BUPIVacaine 0.125%-NSS 100ML BAG ONE (11:14)
[2023-09-20] MEDS ORDERED: NALOXONE HCL 0.4 MG/1 ML VIAL/CARP IV PRN ×3 (11:35→15:25)
[2023-09-20] MEDS ORDERED: ePHEDrine sulfate 50 MG/ML AMP IV PRN ×3 (11:35→15:25)
[2023-09-20] MEDS ORDERED: ROPIVACAINE 0.5% PF 5 MG/ML 20 ML VIAL EPI PRN (11:35)
[2023-09-20] MEDS ORDERED: NALOXONE HCL 1 MG in SODIUM CHLORIDE 0.9% 1,000 ML IV PRN ×3 (11:35→15:25)
[2023-09-20] MEDS ORDERED: LIDOCAINE 2%/EPINEPHRINE 1:200,000 20 ML PF EPI STA (11:35)
[2023-09-20] MEDS ORDERED: fentANYL 2 MCG/ML BUPIVacaine 0.125%-NSS 100ML BAG EPI PRN (11:35)
[2023-09-20] MEDS ORDERED: SODIUM CHLORIDE 0.9% PF INJ 10 ML VIAL EPI PRN (11:35)
[2023-09-20] MEDS ORDERED: SODIUM CHLORIDE 0.9% PF INJ 10 ML VIAL EPI STA (11:35)
[2023-09-20] MEDS ORDERED: fentaNYL citrate PF 100 MCG/2 ML VIAL EPI PRN (11:35)
[2023-09-20] MEDS ORDERED: NALBUPHINE HCL 5 MG in SYRINGE 0 ML IV PRN ×3 (11:35→15:25)
[2023-09-20] MEDS ORDERED: LIDOCAINE 2% MPF LOCAL 5 ML VIAL EPI PRN (11:35)
[2023-09-20] MEDS ORDERED: BUPIVACAINE 0.25% PF 30 ML VIAL EPI PRN (11:35)
[2023-09-20] MEDS ORDERED: BUPIVACAINE 0.25% PF 30 ML VIAL EPI STA (11:35)
[2023-09-20] MEDS ORDERED: fentaNYL citrate PF 100 MCG/2 ML VIAL EPI STA (11:35)
[2023-09-20] MEDS ORDERED: diphenhydrAMINE 50 MG/ML VIAL IV PRN ×3 (11:35→15:25)
--- NOTE | 2023-09-20 13:26 | History & Physical Bridge Note ---
Date of Service September 20, 2023 History & Physical Bridge Note I have examined the patient, reviewed the History & Physical and in the interval since the performance of the History & Physical I have noted the following changes of clinical significance: Patient had been on pitocin since yesterday, multiple attempts at AROM previously. I performed AROM this morning for clear fluid at approx 0730, IUPC placed and pitocin continued. Cervix was 4/70/-2 at time of AROM. Recheck of cervix showed same cervix exam. Contractions Q 2-4 min, adequate MVUs. Patient is understandably frustrated and exhausted at this point. We discussed continuing the labor process vs section. She and family considered their options and ultimately elected for a primary section. We reviewed consent for - reviewed risks, benefits, alternatives. She would like to proceed with for failure to progress. Will give ancef 2g and azithro 500mg.
[2023-09-20] MEDS ORDERED: AZITHROMYCIN 500 MG in DEXTROSE 5% 250 ML IV ONE (13:30)
[2023-09-20] MEDS ORDERED: LACTATED RINGER'S 1,000 ML IV SCH ×2 (13:30→15:38)
[2023-09-20] MEDS ORDERED: OXYTOCIN 10 UNITS/ML VIAL ONE (13:33)
[2023-09-20] MEDS ORDERED: fentaNYL citrate PF 100 MCG/2 ML VIAL ONE (13:34)
[2023-09-20] MEDS ORDERED: MoRPHine SULFATE PF 1 MG/ML 10 ML AMP/VIAL ONE (13:34)
[2023-09-20] MEDS ORDERED: LIDOCAINE 2%/EPINEPHRINE 1:200,000 20 ML PF ONE (13:37)
[2023-09-20] MEDS: ceFAZolin 2000MG 2,000 MG/15 ML SYR IV ONE (13:55)
[2023-09-20] MEDS: CITRIC ACID/SODIUM CITRATE 15 ML UDC PO ONE (13:56)
[2023-09-20 14:23] LABS: Hematocrit (blood only) 35.8 % (37.0-47.0); Hemoglobin 12.9 g/dl (12.0-16.0); Mean Corpuscular Hemoglobin 30.6 pg (25.0-34.0); Mean Platelet Volume 9.8 fL (9.4-12.4); Platelet Count 205 K/uL (130-400); RDW Coefficient of Variation 13.2 % (11.5-14.5); RDW Standard Deviation 40.9 fL (36.4-46.3); Red Blood Count 4.21 M/uL (4.20-5.40); White Blood Count 12.52 K/ul (4.8-10.8)
[2023-09-20] MEDS ORDERED: ONDANSETRON INJ 2 MG/ML 2 ML VIAL ONE (14:33)
[2023-09-20] MEDS ORDERED: SODIUM CHLORIDE 0.9% 1,000 ML IV SCH ×2 (14:45→15:30)
[2023-09-20] MEDS ORDERED: DC INTRASPINAL MORPHINE SCH ×2 (14:45→15:30)
[2023-09-20] MEDS ORDERED: MoRPHine SULFATE PF 1 MG/ML 10 ML AMP/VIAL EPI ONE (14:45)
[2023-09-20] MEDS ORDERED: HYDROmorphone INJ 0.5 MG/0.5 ML SYR IV PRN ×2 (14:45→15:25)
[2023-09-20] MEDS ORDERED: NO NARCOTICS OR SEDATIVES SCH ×2 (14:45→15:30)
[2023-09-20] MEDS ORDERED: LACTATED RINGER'S 500 ML IV PRN ×2 (14:45→15:25)
[2023-09-20] MEDS ORDERED: NALOXONE HCL 0.08 MG in SYRINGE 1.8 ML IV PRN ×2 (14:45→15:25)
[2023-09-20] MEDS ORDERED: KETOROLAC 30 MG/ML VIAL ONE (15:05)
[2023-09-20] MEDS ORDERED: MoRPHine SULFATE 2 MG/ML CARP IV PRN (15:25)
[2023-09-20] MEDS ORDERED: MoRPHine SULFATE PF 1 MG/ML 10 ML AMP/VIAL INT SPINAL ONE (15:25)
[2023-09-20] MEDS ORDERED: PROMETHAZINE 6.25 MG/50.25 ML BAG IV PRN (15:25)
[2023-09-20] MEDS ORDERED: KETOROLAC 30 MG/ML VIAL IV PRN (15:25)
[2023-09-20] MEDS ORDERED: MEPERIDINE HCL 25 MG/ML CARP/VIAL IV PRN (15:25)
--- NOTE | 2023-09-20 15:25 | Operative Report ---
Post Operative Report Pre & Post Diagnosis Operation Date: 09/20/23 13:50 Pre: term induction of labor, failure to dilate beyond 4cm Post: same I identified the patient and participated in the time-out.: Yes Procedure Operation Date: 09/20/23 13:50 Actual Procedures p Primary Low Transverse Section in - Irina Reyes DO Surgeon Irina Reyes, Damascener Radha Ordaz RN Quantitative Blood Loss (QBL) 485 Findings Consistent with Post-Op Diagnosis Specimens cord blood, cord gas, placenta Drains yoo clear yellow Anesthesia Type Spinal Complications none Disposition Accompanied Patient To Recovery: No Disposition: L&D Indications 28yo @ 40 5/7, IOL for postdates, prolonged induction course, unable to progress beyond 4cm cervical dilation, section for failure to progress/dilate. Description of Procedure The patient was seen in her labor and delivery room, risks benefits and alternatives to surgery were reviewed. Informed consent obtained. Questions were answered. She was taken to the operating room, spinal anesthesia was administered. She was then prepared and draped in the usual sterile fashion in the supine position with a leftward tilt. Timeout was confirmed. A Pfannenstiel skin incision was made with a scalpel, and carried through to the underlying layer of fascia. Fascia was nicked at midline, and this incision was extended bilaterally. The superior aspect of the fascial incision was grasped with Dolly clamps x2, elevated off the underlying rectus abdominis muscles, and dissected sharply and bluntly. In similar fashion, the inferior aspect of the fascial incision was dissected. The rectus abdominis muscles were , and the peritoneum was entered bluntly digitally. This was extended bilaterally. The bladder flap was taken down carefully using Metzenbaum scissors. Using a new scalpel, a low transverse uterine incision was created. Clear amniotic fluid noted. The was delivered from a cephalic presentation. Nuchal x 1. The head delivered, followed by shoulders and body. Spontaneous cry on the field. The cord was doubly clamped and cut, and the was handed off to the waiting two needle machine operator. A segment was retained for cord gases. Cord blood was obtained. The placenta was delivered spontaneously intact. The uterus was exteriorized, and cleared of all clots and debris. The hysterotomy incision was reapproximated using 0 Vicryl in a running locked stitch. A second layer of the same suture was used to imbricate the incision. Posterior uterus was evaluated - findings of adhesive disease in posterior cul-de-sac. Initially, uterus with poor tone - therefore hemabate was drawn up and injected directly into the uterine muscle. After this and closure of the hysterotomy, tone significantly improved. The uterus was returned to the abdomen, and gutters were cleared of clots and debris. Excellent hemostasis was observed. The fascial incision was reapproximated using 0 Vicryl in a running stitch. The subcutaneous tissue was irrigated, and reapproximated using 2-0 plain gut in a running stitch. The skin was reapproximated using 4-0 Vicryl in a running subcuticular stitch. Steri-Strips and a bandage were applied. The patient tolerated the procedure well, and will be taken to the recovery area in stable and good condition. I attest to the content of the Intraoperative Record and any orders documented therein. Any exceptions are noted below. OB Procedure Charges 90970
--- NOTE | 2023-09-20 15:26 | Anesthesia Procedure Note ---
Date of Service September 20, 2023 Anesthesia Post Epidural Note Vital Signs Vital Signs: Temp Pulse Resp BP Pulse Ox 36.8 C 85 20 124/66 97 09/20/23 13:31 09/20/23 15:25 09/20/23 14:01 09/20/23 15:13 09/20/23 15:25 Pain Intensity Bilateral Abdomen: Pain Intensity: 0 Notes Mental Status: alert / awake / arousable Nausea / Vomiting: adequately controlled Pain: adequately controlled Airway Patency, RR, SpO2: stable & adequate BP & HR: stable & adequate Hydration State: stable & adequate Neuraxial Anesthesia: was administered and sensory block is resolving Anesthetic Complications: no major complications apparent and Pt Satisfied with anesthetic care Epidural: Removed without complications and With tip intact
--- NOTE | 2023-09-20 15:28 | Anesthesiology Progress Note ---
Date of Service September 20, 2023 Anesthesia Post Procedure Vital Signs Vital Signs: Temp Pulse Resp BP Pulse Ox 09/20/23 15:26 86 93 09/20/23 15:25 85 97 09/20/23 15:20 82 98 09/20/23 15:13 88 124/66 09/20/23 14:01 94 H 20 130/78 09/20/23 13:58 104 H 98 09/20/23 13:53 84 96 09/20/23 13:48 88 93 09/20/23 13:46 83 122/69 88 L 09/20/23 13:43 90 96 09/20/23 13:40 87 90 09/20/23 13:38 84 96 09/20/23 13:33 88 96 09/20/23 13:32 84 130/72 09/20/23 13:31 20 09/20/23 13:31 36.8 C 20 09/20/23 13:28 89 96 09/20/23 13:23 90 97 09/20/23 13:19 83 88 L 09/20/23 13:18 88 95 09/20/23 13:17 81 127/73 09/20/23 13:13 84 96 09/20/23 13:08 86 96 09/20/23 13:03 77 97 09/20/23 13:01 82 20 128/75 09/20/23 12:58 81 96 09/20/23 12:53 79 98 09/20/23 12:48 91 H 94 09/20/23 12:47 92 H 89 L 09/20/23 12:46 83 130/75 09/20/23 12:43 80 94 09/20/23 12:38 96 09/20/23 12:38 87 09/20/23 12:38 86 91 09/20/23 12:33 90 96 09/20/23 12:31 81 20 138/78 09/20/23 12:28 82 94 09/20/23 12:23 89 96 09/20/23 12:22 88 88 L 09/20/23 12:18 74 96 09/20/23 12:17 79 130/78 09/20/23 12:13 86 96 09/20/23 12:08 73 96 09/20/23 12:04 84 92 09/20/23 12:03 98 09/20/23 12:03 80 09/20/23 12:03 75 122/62 09/20/23 12:01 18 09/20/23 12:01 18 09/20/23 11:59 83 90 09/20/23 11:58 76 89 L 09/20/23 11:54 73 91 09/20/23 11:53 73 92 09/20/23 11:48 80 95 09/20/23 11:47 82 124/76 09/20/23 11:43 72 94 09/20/23 11:38 76 97 09/20/23 11:33 36.9 C 69 96 09/20/23 11:32 20 09/20/23 11:32 20 09/20/23 11:31 78 120/58 L 09/20/23 11:30 80 91 09/20/23 11:28 73 96 09/20/23 11:23 73 89 L 09/20/23 11:18 66 96 09/20/23 11:17 70 103/50 L 09/20/23 11:13 73 96 09/20/23 11:08 68 95 09/20/23 11:03 63 95 09/20/23 11:02 65 94/53 L 09/20/23 11:01 20 09/20/23 11:01 20 09/20/23 10:58 63 94 09/20/23 10:57 65 92 09/20/23 10:53 63 95 09/20/23 10:48 62 96 09/20/23 10:46 65 104/59 L 09/20/23 10:43 73 98 09/20/23 10:38 75 95 09/20/23 10:36 87 90 09/20/23 10:33 86 96 09/20/23 10:31 68 116/58 L 09/20/23 10:28 71 94 09/20/23 10:24 71 92 09/20/23 10:23 73 93 09/20/23 10:18 66 93 09/20/23 10:16 70 116/59 L 09/20/23 10:15 73 91 09/20/23 10:13 73 93 09/20/23 10:08 71 95 09/20/23 10:07 69 92 09/20/23 10:03 80 95 09/20/23 10:02 69 20 118/60 09/20/23 09:58 74 95 09/20/23 09:53 85 90 09/20/23 09:48 76 98 09/20/23 09:47 71 118/63 09/20/23 09:43 82 98 09/20/23 09:38 78 97 09/20/23 09:33 81 95 09/20/23 09:32 36.8 C 82 112/68 09/20/23 09:31 20 09/20/23 09:31 20 09/20/23 09:28 84 96 09/20/23 09:23 84 95 09/20/23 09:18 77 94 09/20/23 09:17 78 117/59 L 09/20/23 09:13 77 95 09/20/23 09:09 76 90 09/20/23 09:08 74 96 09/20/23 09:03 91 H 94 09/20/23 09:02 75 92 09/20/23 09:01 93 H 20 122/67 09/20/23 08:58 71 94 09/20/23 08:56 82 91 09/20/23 08:53 91 H 94 09/20/23 08:51 75 91 09/20/23 08:48 87 95 09/20/23 08:46 73 122/64 09/20/23 08:45 73 91 09/20/23 08:43 90 91 09/20/23 08:39 92 H 92 09/20/23 08:38 87 93 09/20/23 08:33 83 91 09/20/23 08:31 100 H 20 120/76 09/20/23 08:28 81 95 09/20/23 08:23 90 97 09/20/23 08:18 78 96 09/20/23 08:17 88 117/73 09/20/23 08:13 82 96 09/20/23 08:08 85 85 L 09/20/23 08:03 86 95 09/20/23 08:01 81 20 129/72 09/20/23 07:58 92 H 95 09/20/23 07:53 76 94 09/20/23 07:48 81 96 09/20/23 07:46 80 120/71 09/20/23 07:43 85 94 09/20/23 07:38 67 97 09/20/23 07:33 76 96 09/20/23 07:31 36.8 C 70 20 138/78 09/20/23 07:28 78 98 09/20/23 07:25 76 91 09/20/23 07:23 69 97 09/20/23 07:18 69 97 09/20/23 07:17 71 121/59 L 09/20/23 07:13 75 97 09/20/23 07:08 73 96 09/20/23 07:03 72 96 09/20/23 07:01 68 20 116/65 09/20/23 06:58 77 96 09/20/23 06:53 68 97 09/20/23 06:48 71 97 09/20/23 06:46 66 123/65 09/20/23 06:43 77 96 09/20/23 06:38 77 96 09/20/23 06:33 65 95 09/20/23 06:32 68 125/77 09/20/23 06:28 36.8 C 09/20/23 06:28 71 97 09/20/23 06:23 71 97 09/20/23 06:18 65 96 09/20/23 06:16 60 105/58 L 09/20/23 06:13 64 95 09/20/23 06:08 69 93 09/20/23 06:03 65 94 09/20/23 06:01 56 L 104/57 L 09/20/23 05:58 66 95 09/20/23 05:53 57 L 95 09/20/23 05:48 62 94 09/20/23 05:46 59 L 99/57 L 09/20/23 05:43 62 94 09/20/23 05:38 62 95 09/20/23 05:33 61 95 09/20/23 05:31 69 103/57 L 09/20/23 05:28 63 95 09/20/23 05:23 64 94 09/20/23 05:18 63 94 09/20/23 05:16 63 103/57 L 09/20/23 05:13 63 94 09/20/23 05:08 64 95 09/20/23 05:03 67 94 09/20/23 05:01 61 103/55 L 09/20/23 04:58 66 93 09/20/23 04:53 69 93 09/20/23 04:52 64 92 09/20/23 04:48 75 94 09/20/23 04:47 66 89 L 09/20/23 04:46 66 99/55 L 09/20/23 04:43 66 94 09/20/23 04:38 66 94 09/20/23 04:36 67 91 09/20/23 04:33 65 94 09/20/23 04:31 62 99/52 L 09/20/23 04:28 70 94 09/20/23 04:23 65 94 09/20/23 04:18 66 94 09/20/23 04:16 61 100/51 L 09/20/23 04:13 66 94 09/20/23 04:08 63 95 09/20/23 04:03 62 95 09/20/23 04:01 62 101/53 L 09/20/23 04:00 37.0 C 09/20/23 03:58 64 95 09/20/23 03:53 69 96 09/20/23 03:48 67 95 09/20/23 03:43 67 96 09/20/23 03:38 67 96 09/20/23 03:33 72 96 09/20/23 03:28 71 95 09/20/23 03:23 85 95 09/20/23 03:18 73 94 09/20/23 03:16 68 113/62 09/20/23 03:13 76 95 09/20/23 03:08 72 95 09/20/23 03:03 71 95 09/20/23 03:01 67 111/61 09/20/23 02:58 69 95 09/20/23 02:53 71 95 09/20/23 02:48 71 94 09/20/23 02:46 69 112/58 L 09/20/23 02:43 72 95 09/20/23 02:38 76 94 09/20/23 02:33 75 95 09/20/23 02:31 68 110/62 09/20/23 02:28 72 96 09/20/23 02:23 83 97 09/20/23 02:18 71 95 09/20/23 02:16 68 119/64 09/20/23 02:13 78 96 09/20/23 02:08 72 94 09/20/23 02:03 78 95 09/20/23 02:01 74 117/65 09/20/23 01:58 72 96 09/20/23 01:53 82 95 09/20/23 01:48 85 98 09/20/23 01:47 77 116/59 L 09/20/23 01:43 77 96 09/20/23 01:38 83 95 09/20/23 01:33 83 95 09/20/23 01:31 75 114/65 09/20/23 01:28 80 94 09/20/23 01:23 73 95 09/20/23 01:18 72 94 09/20/23 01:17 74 111/58 L 09/20/23 01:13 79 94 09/20/23 01:08 72 95 09/20/23 01:03 74 96 09/20/23 01:01 70 115/62 09/20/23 00:58 78 95 09/20/23 00:53 80 94 09/20/23 00:48 67 94 09/20/23 00:47 76 117/67 09/20/23 00:43 73 95 09/20/23 00:38 78 95 09/20/23 00:33 75 95 09/20/23 00:32 70 119/65 09/20/23 00:28 80 96 09/20/23 00:23 83 96 09/20/23 00:18 89 96 09/20/23 00:13 80 97 09/20/23 00:08 79 96 09/20/23 00:03 83 151/77 H 98 09/20/23 00:00 36.8 C 09/19/23 23:59 90 09/19/23 23:59 78 09/19/23 23:58 93 09/19/23 23:58 68 09/19/23 23:53 94 09/19/23 23:53 72 09/19/23 23:48 94 09/19/23 23:48 73 09/19/23 23:46 66 09/19/23 23:46 119/65 09/19/23 23:44 92 09/19/23 23:44 73 09/19/23 23:43 93 09/19/23 23:43 73 09/19/23 23:38 94 09/19/23 23:38 70 09/19/23 23:36 92 09/19/23 23:36 75 09/19/23 23:33 94 09/19/23 23:33 76 09/19/23 23:31 69 09/19/23 23:31 119/60 09/19/23 23:28 95 09/19/23 23:28 78 09/19/23 23:23 94 09/19/23 23:23 80 09/19/23 23:18 95 09/19/23 23:18 72 09/19/23 23:16 67 09/19/23 23:16 116/64 09/19/23 23:13 93 09/19/23 23:13 72 09/19/23 23:08 93 09/19/23 23:08 74 09/19/23 23:03 93 09/19/23 23:03 72 09/19/23 23:01 72 09/19/23 23:01 114/60 09/19/23 22:58 94 09/19/23 22:58 73 09/19/23 22:53 95 09/19/23 22:53 74 09/19/23 22:48 95 09/19/23 22:48 76 09/19/23 22:46 73 09/19/23 22:46 109/61 09/19/23 22:43 94 09/19/23 22:43 73 09/19/23 22:38 93 09/19/23 22:38 69 09/19/23 22:33 94 09/19/23 22:33 71 09/19/23 22:31 74 09/19/23 22:31 107/59 L 09/19/23 22:28 95 09/19/23 22:28 70 09/19/23 22:23 95 09/19/23 22:23 77 09/19/23 22:18 96 09/19/23 22:18 64 09/19/23 22:17 62 09/19/23 22:17 107/57 L 09/19/23 22:14 91 09/19/23 22:14 71 09/19/23 22:13 93 09/19/23 22:13 72 09/19/23 22:08 94 09/19/23 22:08 67 09/19/23 22:03 94 09/19/23 22:03 68 09/19/23 22:01 65 09/19/23 22:01 100/52 L 09/19/23 21:58 94 09/19/23 21:58 67 09/19/23 21:53 93 09/19/23 21:53 73 09/19/23 21:52 92 09/19/23 21:52 73 09/19/23 21:48 94 09/19/23 21:48 74 09/19/23 21:47 65 09/19/23 21:47 100/56 L 09/19/23 21:46 69 09/19/23 21:46 104/54 L 09/19/23 21:43 94 09/19/23 21:43 70 09/19/23 21:38 94 09/19/23 21:38 66 09/19/23 21:33 94 09/19/23 21:33 67 09/19/23 21:31 66 09/19/23 21:31 102/53 L 09/19/23 21:28 94 09/19/23 21:28 68 09/19/23 21:23 95 09/19/23 21:23 65 09/19/23 21:18 94 09/19/23 21:18 70 09/19/23 21:16 65 09/19/23 21:16 99/51 L 09/19/23 21:13 94 09/19/23 21:13 65 09/19/23 21:09 18 09/19/23 21:09 36.8 C 18 09/19/23 21:09 91 09/19/23 21:09 84 09/19/23 21:08 93 09/19/23 21:08 82 09/19/23 21:03 94 09/19/23 21:03 88 09/19/23 21:02 80 09/19/23 21:02 114/65 09/19/23 20:58 93 09/19/23 20:58 73 09/19/23 20:53 96 09/19/23 20:53 81 09/19/23 20:48 96 09/19/23 20:48 81 09/19/23 20:46 85 09/19/23 20:46 126/72 09/19/23 20:43 96 09/19/23 20:43 91 H 09/19/23 20:38 95 09/19/23 20:38 72 09/19/23 20:33 95 09/19/23 20:33 76 08/14/24 20:31 85 09/19/23 20:31 120/74 09/19/23 20:28 97 09/19/23 20:28 92 H 09/19/23 20:23 96 09/19/23 20:23 75 09/19/23 20:18 100 09/19/23 20:18 97 H 09/19/23 20:16 88 09/19/23 20:16 110/68 09/19/23 20:13 95 09/19/23 20:13 81 09/19/23 20:08 94 09/19/23 20:08 79 09/19/23 20:03 96 09/19/23 20:03 80 09/19/23 20:02 75 09/19/23 20:02 116/63 09/19/23 19:58 93 09/19/23 19:58 79 09/19/23 19:53 94 09/19/23 19:53 73 09/19/23 19:48 93 09/19/23 19:48 74 09/19/23 19:47 78 09/19/23 19:47 120/72 09/19/23 19:43 95 09/19/23 19:43 82 09/19/23 19:38 93 09/19/23 19:38 82 09/19/23 19:33 89 96 09/19/23 19:31 79 115/64 09/19/23 19:28 79 95 09/19/23 19:23 81 93 09/19/23 19:18 90 96 09/19/23 19:16 88 123/66 09/19/23 19:13 91 H 96 09/19/23 19:08 81 96 09/19/23 19:05 36.7 C 18 09/19/23 19:03 82 96 09/19/23 19:01 96 H 117/67 09/19/23 18:58 89 94 09/19/23 18:53 84 94 09/19/23 18:48 87 95 09/19/23 18:46 83 115/62 09/19/23 18:43 90 96 09/19/23 18:38 82 95 09/19/23 18:33 85 96 09/19/23 18:32 98 H 129/79 09/19/23 18:30 18 09/19/23 18:30 18 09/19/23 18:28 95 H 96 09/19/23 18:23 95 H 96 09/19/23 18:18 85 95 09/19/23 18:17 83 124/56 L 09/19/23 18:16 83 89 L 09/19/23 18:13 95 H 95 09/19/23 18:08 95 H 95 09/19/23 18:03 95 09/19/23 18:03 84 09/19/23 18:03 84 117/65 09/19/23 18:00 20 09/19/23 18:00 20 09/19/23 17:58 91 H 94 09/19/23 17:53 83 95 09/19/23 17:48 88 96 09/19/23 17:46 89 120/72 09/19/23 17:43 84 96 09/19/23 17:38 92 H 96 09/19/23 17:33 82 95 09/19/23 17:32 85 129/82 09/19/23 17:30 18 09/19/23 17:30 18 09/19/23 17:28 82 94 09/19/23 17:23 92 H 97 09/19/23 17:18 76 96 09/19/23 17:16 127/69 09/19/23 17:13 81 98 09/19/23 17:08 68 98 09/19/23 17:03 79 95 09/19/23 17:02 92 H 128/62 09/19/23 17:00 20 09/19/23 17:00 36.9 C 20 09/19/23 16:58 94 H 96 09/19/23 16:53 77 95 09/19/23 16:48 96 09/19/23 16:48 90 09/19/23 16:48 75 123/65 09/19/23 16:43 77 95 09/19/23 16:38 87 95 09/19/23 16:33 85 96 09/19/23 16:32 83 119/75 09/19/23 16:30 18 09/19/23 16:30 37.1 C 18 09/19/23 16:28 72 96 09/19/23 16:23 71 95 09/19/23 16:18 72 97 09/19/23 16:17 76 117/58 L 09/19/23 16:13 69 95 09/19/23 16:08 69 94 09/19/23 16:03 69 95 09/19/23 16:01 64 100/51 L 09/19/23 15:58 70 16 95 09/19/23 15:53 72 95 09/19/23 15:48 71 96 09/19/23 15:46 69 100/52 L 09/19/23 15:43 71 95 09/19/23 15:38 69 95 09/19/23 15:33 69 95 09/19/23 15:28 76 96 Pain Intensity Bilateral Abdomen: Pain Intensity: 0 Transfer of Care Handoff Completed per policy Notes Mental Status: alert / awake / arousable Nausea / Vomiting: adequately controlled Pain: adequately controlled Airway Patency, RR, SpO2: stable & adequate BP & HR: stable & adequate Hydration State: stable & adequate Neuraxial Anesthesia: was administered and sensory block is resolving Anesthetic Complications: no major complications apparent and Pt Satisfied with anesthetic care
[2023-09-20] MEDS ORDERED: SENNA 8.6 MG TAB PO PRN (15:38)
[2023-09-20] MEDS ORDERED: CALCIUM CARBONATE 500 MG CHEWABLE TAB PO PRN (15:38)
[2023-09-20] MEDS ORDERED: MAGNESIUM HYDROXIDE SUSP 30 ML UDC PO PRN (15:38)
[2023-09-20] MEDS ORDERED: DIPHTHER/TETAN/PERTUS Vaccine (Tdap, Adol/Adult) 0.5mL IM ONE (15:38)
[2023-09-20] MEDS ORDERED: BENZOCAINE 20% SPRY 85 APPLN/85 GM CAN EXT PRN (15:38)
[2023-09-20] MEDS ORDERED: HYDROCORTISONE ACETATE 25 MG SUPP PR PRN (15:38)
[2023-09-20] MEDS ORDERED: OXYTOCIN 20 UNITS/1002ML LR IV ONE (17:18)
[2023-09-20] MEDS: OXYTOCIN 30 UNITS/LR 1,003 ML IV SCH (17:32)
[2023-09-20] MEDS ORDERED: KETOROLAC 30 MG/ML VIAL IV SCH (18:00)
[2023-09-20] MEDS: IBUPROFEN 600 MG TAB PO SCH (18:12)
[2023-09-20] MEDS: ACETAMINOPHEN 325 MG TAB PO SCH (18:48)
[2023-09-20] MEDS: KETOROLAC 30 MG/ML VIAL IV PRN (20:45)
[2023-09-20] MEDS: SIMETHICONE 80 MG CHEW PO SCH (21:29)
[2023-09-20] MEDS: DOCUSATE SODIUM 100 MG CAP PO SCH (21:29)
[2023-09-20 22:00] LABS: Hematocrit (blood only) 31.1 % (37.0-47.0)
[2023-09-21 06:34] LABS: Basophils # (auto) 0.02 K/uL (0.00-0.20); Basophils % (auto) 0.1 %; Eosinophils # (auto) 0.07 K/uL (0.00-0.50); Eosinophils % (auto) 0.5 %; Hematocrit (blood only) 29.5 % (37.0-47.0); Hemoglobin 10.4 g/dl (12.0-16.0); Immature Granulocytes # (auto) 0.06 K/uL (0.01-0.20); Immature Granulocytes % (auto) 0.4 %; Lymphocytes # (auto) 1.23 K/uL (1.20-3.40); Mean Corpuscular Hemoglobin 30.2 pg (25.0-34.0); Mean Corpuscular Hgb Conc 35.3 g/dL (32.0-36.0); Mean Corpuscular Volume 85.8 fL (80.0-100.0); Monocytes # (auto) 0.81 K/uL (0.11-0.59); Monocytes % (auto) 5.9 %; Neutrophils % (auto) 84.1 %; Platelet Count 184 K/uL (130-400); RDW Coefficient of Variation 13.2 % (11.5-14.5); RDW Standard Deviation 40.8 fL (36.4-46.3); Red Blood Count 3.44 M/uL (4.20-5.40); White Blood Count 13.69 K/ul (4.8-10.8)
--- NOTE | 2023-09-21 06:54 | Obstetrical Progress Note ---
Date of Service <Palmira Dillon MD - Last Filed: 09/21/23 07:00> September 21, 2023 Assessment & Plan <Palmira Dillon MD - Last Filed: 09/21/23 07:00> (1) Encounter for induction of labor: -S/P Em LSCS for Failed IOL -16 hours POD - Doing well Overall, Ambulation to bathroom: encouraged to corridor today - Regular Diet, Mod Lochia, Incision dry and healthy, Pain controlled. - Counselled She will resume normal bowel once she ambulates. - Possible discharge tomorrow afternoon. <Irina Reyes DO - Last Filed: 09/21/23 07:16> (1) Encounter for induction of labor: Subjective <Palmira Dillon MD - Last Filed: 09/21/23 07:00> Patient is a 28 yo female is 16 hours Post Operative following delivery fro [facility] IOL at 40 weeks 6 days. She reports feeling well overall this morning. She has mild abdominal cramping and 2/10 pain well managed on analgesics. Voiding : Passed Urine after yoo's out. Tolerating regular meals overnight and able to ambulate some. She has not passed gas but has bowel movement. Persistent lochia with some improvement this morning. Currently expressing Breast Milk feeding. Review of Systems Denies fever, chills, sweats. Denies SOB, difficulty breathing, chest pain, palpitations, and chest pressure. Denies breast pain. Denies dysuria. Denies headache or changes in vision. Physical Exam <Palmira Dillon MD - Last Filed: 09/21/23 07:00> General: Alert and oriented. No acute distress. CV: Regular rate and rhythm. No murmurs. Respiratory: CTA bilaterally. No rhonchi, wheezes, or crackles. No increased work of breathing. Abdomen: Positive bowel sounds. Soft, nontender, and nondistended. Uterus: Fundus firm and palpable few cm below umbilicus. Surgical scar clean and healing well. Lower extremities: No LE edema. No deep calf pain. Brian's negative bilaterally. Results & Data <Palmira Dillon MD - Last Filed: 09/21/23 07:00> Vital Signs (Past 12 Hours) Vital Signs Temp Pulse Resp BP Pulse Ox O2 Del Method 09/21/23 03:12 36.8 C 82 16 107/69 96 Room Air 09/20/23 23:06 36.6 C 87 16 111/76 98 Room Air Supervising Physician <Irina Reyes DO - Last Filed: 09/21/23 07:16> Co-Signing Physician Notes Resident Physician Supervision Note: I interviewed and examined the patient. Discussed with Dr. Dillon and agree with findings and plan as documented in the note. Any exceptions or clarifications are listed here: POD1 doing well. Bandage clean/dry/intact. Continue routine care. Documented By: Irina Reyes DO Resident Activity Tracking <Palmira Dillon MD - Last Filed: 09/21/23 07:00> Resident Involvement: Resident Care Provided Care Provided: OB Delivery
[2023-09-21] MEDS ORDERED: PROMETHAZINE 12.5 MG/50.5 ML BAG IV PRN (08:45)
[2023-09-21] MEDS ORDERED: ONDANSETRON INJ 2 MG/ML 2 ML VIAL IV PRN (08:45)
[2023-09-21] MEDS ORDERED: diphenhydrAMINE Capsule 25 MG CAP PO PRN (08:45)
[2023-09-21] MEDS ORDERED: diphenhydrAMINE 50 MG/ML VIAL IV PRN (08:45)
[2023-09-21] MEDS ORDERED: HYDROmorphone INJ 0.5 MG/0.5 ML SYR IV PRN (08:45)
[2023-09-21] MEDS: PRENATAL VITAMIN 1 TAB PO SCH (09:57)
[2023-09-21] MEDS: oxyCODONE HCL IR 5 MG TAB (IMMEDIATE RELEASE) PO PRN (09:58)
[2023-09-21] MEDS: FERROUS SULFATE 325 MG TAB PO SCH (09:58)
--- NOTE | 2023-09-21 18:45 | Obstetrical Progress Note ---
Date of Service September 21, 2023 Assessment & Plan (1) Encounter for induction of labor: - S/P Em LSCS for Failed IOL, 2nd POD - Doing well Overall, both mom and baby - Regular Diet, Mod Lochia, Incision dry and healthy, Pain controlled. - Discharge today; seems like she wants to stay one more night here. Subjective Patient is a 28 yo female POD #2 following delivery at 40+5 weeks. She reports feeling well overall this morning.Baby doing fine. Lochia: Decreasing; Breast feeding baby; Passed Urine and gas Plan : Discharge today ( 09/21) Review of Systems Denies fever, chills, sweats. Denies SOB, difficulty breathing, chest pain, palpitations, and chest pressure. Denies breast pain. Denies dysuria. Denies headache or changes in vision. Physical Exam General: Alert and oriented. No acute distress. CV: Regular rate and rhythm. No murmurs. Respiratory: CTA bilaterally. No rhonchi, wheezes, or crackles. No increased work of breathing. Abdomen: Positive bowel sounds. Soft, nontender, and nondistended. Uterus: Fundus firm and palpable few cm below umbilicus. Surgical scar clean and healing well. Lower extremities: No LE edema. No deep calf pain. Results & Data Vital Signs (Past 12 Hours) Vital Signs Temp Pulse Resp BP BP Pulse Ox O2 Del Method 09/21/23 15:50 36.8 C 70 20 108/70 96 Room Air 09/21/23 11:55 36.6 C 100 H 18 113/74 97 Room Air 09/21/23 08:45 18 97 09/21/23 07:30 16 96 09/21/23 07:30 36.7 C 71 16 99/61 L 96 Room Air
[2023-09-21] MEDS: bisacodyL 5 MG TABEC PO SCH (19:56)
[2023-09-22 06:39] LABS: Hematocrit (blood only) 28.1 % (37.0-47.0); Hemoglobin 9.5 g/dl (12.0-16.0)
--- NOTE | 2023-09-22 07:43 | Obstetrical Progress Note ---
Date of Service September 22, 2023 Assessment & Plan (1) Encounter for induction of labor: - S/P Em LSCS for Failed IOL, 2nd POD - Doing well Overall, both mom and baby - Regular Diet, Mod Lochia, Incision dry and healthy, Pain controlled. - Discharge today; seems like she wants to stay one more night here. Physical Exam General: Alert and oriented. No acute distress. CV: Regular rate and rhythm. No murmurs. Respiratory: CTA bilaterally. No rhonchi, wheezes, or crackles. No increased work of breathing. Abdomen: Positive bowel sounds. Soft, nontender, and nondistended. Uterus: Fundus firm and palpable few cm below umbilicus. Surgical scar clean and healing well. Lower extremities: No LE edema. No deep calf pain. Results & Data Vital Signs (Past 12 Hours) Vital Signs Temp Pulse Resp BP O2 Del Method 09/21/23 23:45 36.4 C L 69 16 108/72 Room Air
[2023-09-22 13:49] VITALS: RESP 14
[2023-09-22] MEDS ORDERED: bisacodyL 10 MG SUPP PR PRN (15:16)
[2023-09-22] MEDS ORDERED: traMADol HCL 50 MG TABLET PO PRN (15:16)
[2023-09-22] MEDS: ACETAMINOPHEN 325 MG TAB PO PRN (17:40)
[2023-09-22] MEDS: IBUPROFEN 600 MG TAB PO PRN (17:40)
--- NOTE | 2023-09-23 07:04 | Obstetrical Progress Note ---
Date of Service September 23, 2023 Assessment & Plan (1) S/P primary low transverse : (2) care and examination: Plan stable, doing well. instructions reviewed. f/u 6 wk pp check. discussed use of narcotic and request #7, checked on papdmp and no issues. hgb stable yest. needs breast pump script. rhpos/ri/breast feeding. Day #:: 3 Subjective Ambulation: ambulating normally Voiding: no voiding problems Passing Gas:: Yes Diet Tolerance:: regular diet Lochia:: Small Feeding Type:: breast feeding no pain concerns. doing well Constitutional: + as per Subjective / HPI Physical Exam Constitutional WD/WN, vitals as above Respiratory normal respiratory effort, lungs clear to auscultation Cardiovascular Rate/Rhythm: regular rate and regular rhythm Gastrointestinal (Abdomen) Inspection/Auscultation: abdomen normal to inspection and + abdominal surgical incision (c/d/i steris) Percussion/Palpation: abdomen soft Fundus firm 2cm down Musculoskeletal nt calves no edema Neurologic grossly normal Psychiatric A+Ox3, euthymic affect Results & Data Vital Signs (Past 12 Hours) Vital Signs Temp Pulse Resp BP O2 Del Method 09/22/23 23:35 97.9 F 67 14 111/72 Room Air 09/22/23 19:45 97.5 F L 77 14 113/68 Room Air
[2023-09-23 08:47] VITALS: PULSE 84; TEMP 98.1; O2SAT 97
[2023-09-23 12:23] VITALS: BP 99/61
== END 2023-09-23 12:15 | disposition home or self-care (01) | DRG 788 ==
LOC: 4S1 22:33 → 4E2 09-20 18:19